=== PATIENT | male | born 1990 | race Caucasian/White ===

== ENCOUNTER 2018-09-29 06:35 | Emergency (ER) | payer BC, OTHER ==
[2018-09-29] MEDS ORDERED: NS 0.9% 1000 ML** 1,000 ML IV ONE ×2 (06:54→07:45)
[2018-09-29] MEDS ORDERED: Ketorolac INJ* 30 MG/ML 1 ML VIAL IV PUSH ONE (07:08)
[2018-09-29 07:21] LABS: ABS Basophils 0 10^3/ul (0-0.2); ABS Eosinophils 0 10^3/ul (0-0.6); ABS Lymphocytes 0.3 10^3/ul (1.0-4.8); ABS Monocytes 0.6 10^3/ul (0-0.8); ABS Neutrophils 4.3 10^3/ul (1.5-7.7); ABS Nucleated RBC 0 10^3/ul; Eosinophil % 0.3 %; Hematocrit 43 % (42-52); Hemoglobin 14.8 g/dl (14.0-18.0); Lymphocyte % 5.7 %; Mean Corpuscular HGB Conc 34 g/dl (31-36); Mean Corpuscular Hemoglobin 32 pg (27-31); Mean Corpuscular Volume 93 fL (80-94); Mean Platelet Volume 7.9 fL (7.4-10.4); Nucleated Red Blood Cells % 0; Platelet Count 208 10^3/ul (150-450); Red Blood Count 4.66 10^6/ul (4.00-5.40); Red Cell Distribution Width 12 % (10.5-15); White Blood Count 5.3 10^3/ul (3.5-10.8)
[2018-09-29 07:29] LABS: Influenza A Molecular POSITIVE (Negative)
--- NOTE | 2018-09-29 07:46 | ED ---
Influenza-Like Illness - HPI Summary HPI Summary: Patient is a 27-year-old male presenting to the ED with flulike symptoms. He states yesterday he began to feel feverish, having sweats and chills as well as diffuse body aches. He awoke this morning with nausea, vomiting, diarrhea. He did not have the flu vaccine this year. He states he is otherwise healthy, takes no medications. He denies any chest pain or shortness of breath. Denies any cough or congestion. Denies any rhinorrhea. Endorses a mild headache and some sensitivity to the light. - History of Current Complaint Chief Complaint: EDFluSymptoms Time Seen by Provider: 09/29/18 06:53 Hx Obtained From: Patient Onset/Duration: Gradual Onset Severity: Moderate Associated Signs & Symptoms: Fever, T Max, F/C, Myalgia, Headache Related Hx: Possible Flu/Infectious Exposure - Risk Factors Influenza Risk Factors: Negative - Allergy/Home Medications Allergies/Adverse Reactions: Allergies Allergy/AdvReac Type Severity Reaction Status Date / Time No Known Allergies Allergy Verified 09/29/18 06:39 PMH/Surg Hx/FS Hx/Imm Hx Previously Healthy: Yes - Immunization History Hx Pertussis Vaccination: No Immunizations Up to Date: Yes Infectious Disease History: No Infectious Disease History: Denies: Traveled Outside the [place] in Last 30 Days - Social History Occupation: Employed Full-time Lives: With Family Alcohol Use: Rare Hx Substance Use: No Substance Use Type: Reports: None Hx Tobacco Use: No Smoking Status (MU): Never Smoked Tobacco Review of Systems Positive: Fever, Chills, Fatigue, Skin Diaphoresis Negative: Blurred Vision, Diplopia, Drainage, Erythema Negative: Sore Throat, Nasal Discharge Negative: Palpitations, Chest Pain Negative: Shortness Of Breath, Cough Positive: Vomiting, Nausea. Negative: Abdominal Pain, Diarrhea Positive: Arthralgia, Myalgia Skin: Negative Positive: Headache, Weakness All Other Systems Reviewed And Are Negative: Yes Physical Exam Triage Information Reviewed: Yes Vital Signs On Initial Exam: Initial Vitals Temp Pulse Resp BP Pulse Ox 99.9 F 120 16 113/74 96 09/29/18 06:35 09/29/18 06:35 09/29/18 06:35 09/29/18 06:35 09/29/18 06:35 Vital Signs Reviewed: Yes Appearance: Positive: Ill-Appearing Skin: Positive: Diaphoretic Head/Face: Positive: Normal Head/Face Inspection Eyes: Positive: EOMI, DIAMOND, Conjunctiva Clear Neck: Positive: Supple, No Lymphadenopathy Respiratory/Lung Sounds: Positive: Clear to Auscultation, Breath Sounds Present Cardiovascular: Positive: RRR, Pulses are Symmetrical in both Upper and Lower Extremities Musculoskeletal: Positive: Strength/ROM Intact Neurological: Positive: Speech Normal Psychiatric: Positive: Affect/Mood Appropriate AVPU Assessment: Alert Diagnostics - Vital Signs Vital Signs Temp Pulse Resp BP Pulse Ox 09/29/18 07:04 101.6 F 107 127/66 97 09/29/18 07:03 106 96 09/29/18 06:35 99.9 F 120 16 113/74 96 - Laboratory Lab Results: Lab Results 09/29/18 09/29/18 Range/Units 07:12 07:25 WBC 5.3 (3.5-10.8) 10^3/ul RBC 4.66 (4.00-5.40) 10^6/ul Hgb 14.8 (14.0-18.0) g/dl Hct 43 (42-52) % MCV 93 (80-94) fL MCH 32 H (27-31) pg MCHC 34 (31-36) g/dl RDW 12 (10.5-15) % Plt Count 208 (150-450) 10^3/ul MPV 7.9 (7.4-10.4) fL Neut % (Auto) 81.5 % Lymph % (Auto) 5.7 % [place] % (Auto) 11.9 % Eos % (Auto) 0.3 % Baso % (Auto) 0.6 % Absolute Neuts (auto) 4.3 (1.5-7.7) 10^3/ul Absolute Lymphs (auto) 0.3 L (1.0-4.8) 10^3/ul Absolute Monos (auto) 0.6 (0-0.8) 10^3/ul Absolute Eos (auto) 0 (0-0.6) 10^3/ul Absolute Basos (auto) 0 (0-0.2) 10^3/ul Absolute Nucleated RBC 0 10^3/ul Nucleated RBC % 0 Influenza A (Rapid) Positive A (Negative) Result Diagrams: 09/29/18 07:12 09/29/18 07:12 Lab Statement: Any lab studies that have been ordered have been reviewed, and results considered in the medical decision making process. Flu Symptom Course/Dx - Course Course Of Treatment: On arrival, patient is noted to be septic criteria. Febrile one 101.3, tachycardia at 112 and respirations 24. Labs and fluids ordered. Influenza A+, so antibiotics were not given. He is given Toradol and 2 L fluids. He is also given Tylenol 650 mg. Patient is feeling improved. He will be discharged home with influenza a virus. He is given supportive measures. - Diagnoses Differential Diagnosis/HQI/PQRI: Positive: Influenza Provider Diagnoses: Influenza A Discharge - Sign-Out/Discharge Documenting (check all that apply): Patient Departure - Discharge Plan Condition: Stable Disposition: HOME Patient Education Materials: Influenza (ED) Referrals: No Primary Care Phys,NOPCP [Primary Care Provider] - Additional Instructions: Drink plenty of fluids Rest as much as possible Chicken noodle soup, rice, applesauce, bananas You begin to feel better in a few days Tylenol 650 mg 3 times daily Ibuprofen 600 mg 3 times daily You be taking either one of these every 3 hours, with ibuprofen every 6 hours and Tylenol every 6 hours Please take precautions when around others for the next few days Do not share drinks or food Wash hands frequently Humidifier in the home may help - Billing Disposition and Condition Condition: STABLE Disposition: Home
[2018-09-29 07:50] LABS: Albumin 4.2 g/dL (3.2-5.2); Albumin/Globulin Ratio 1.6 (1-3); BUN/Creatinine Ratio 16.8 (8-20); C Reactive Protein 25.77 mg/L (<8.01); Calcium 8.8 mg/dL (8.6-10.3); EGFR African American 101.9 (>60); EGFR Non-African American 84.2 (>60); Globulin 2.6 g/dL (2-4); Potassium 3.9 mmol/L (3.5-5.0); Total Bilirubin 0.3 mg/dL (0.2-1.0); Total Protein 6.8 g/dL (6.4-8.9)
[2018-09-29] MEDS ORDERED: Acetaminophen TAB* 325 MG PO ONE (08:02)
[2018-09-29 09:02] VITALS: BP 112/52
== END 2018-09-29 09:02 | disposition home or self-care (01) ==
LOC: ED 06:35
DX: J10.1 Influenza due to other identified influenza virus with other respiratory manifestations (principal)
CPT/HCPCS: 36415; 80053; 83605; 85025; 86140; 87040; 96374; 99283; A9270-GY; J1885